=== PATIENT | female | born 2000 | race Two or more races ===

== ENCOUNTER 2022-08-12 01:13 | Emergency (ER) | payer BC, OTHER ==
[~2022-08-12] VITALS: Ht 170.2 cm; Wt 74.5 kg
[2022-08-12 05:18] VITALS: BP 134/83
== END 2022-08-12 05:48 | disposition home or self-care (01) ==
LOC: ER 01:13
DX: L02.412 Cutaneous abscess of left axilla (principal)
CPT/HCPCS: 10060

== ENCOUNTER → 2023-02-09 | Outpatient (CLI) | payer BC | END | disposition home or self-care (01) | LOC: LAB 06:11 | PROVIDERS: ATTEND Student in an Organized Health Care Education/Training Program | DX: N94.10 Unspecified dyspareunia (principal) | CPT/HCPCS: 87070 ==

== ENCOUNTER → 2023-03-09 | Outpatient (CLI) | payer BC ==
[2023-03-09 16:30] LABS: Basophils # (auto) 0 10 ^3/uL (0-0.2); Basophils % (auto) 0.5 % (0.0-2.0); Eosinophils # (auto) 0.1 10 ^3/uL (0-0.8); Eosinophils % (auto) 0.9 % (0.0-7.0); Hematocrit 47.4 % (36.0-46.0); Hemoglobin 16.5 g/dL (12.2-16.2); Lymphocytes # (auto) 1.8 10 ^3/uL (0.4-5.4); Lymphocytes % (auto) 24.4 % (10.0-50.0); Mean Corpuscular Hemoglobin 32.1 pg (28.0-32.0); Mean Corpuscular Hgb Conc. 34.8 g/dL (32.0-36.0); Mean Corpuscular Volume 92.2 fL (80.0-100.0); Monocytes # (auto) 0.6 10 ^3/uL (0-1.3); Monocytes % (auto) 8.3 % (0.0-12.0); Neutrophils % (auto) 65.9 % (37.0-80.0); Nucleated Red Blood Cells % 0.1 %; Red Blood Cells 5.14 10^6/uL (4.0-5.20); Red Cell Distribution Width 12.8 % (11.8-14.3); White Blood Cell 7.6 10^3/uL (4.4-10.8)
[2023-03-09 17:11] LABS: BUN/Creatinine Ratio 21.2 (10.0-20.0); Calcium 9.8 mg/dL (8.5-10.1)
[2023-03-10 07:06] LABS: RPR Non Reactive (Non Reactive)
== END | disposition home or self-care (01) ==
LOC: LAB 16:06
PROVIDERS: ATTEND Student in an Organized Health Care Education/Training Program
DX: Z00.00 Encounter for general adult medical examination without abnormal findings (principal); N94.10 Unspecified dyspareunia; Z72.53 High risk bisexual behavior
CPT/HCPCS: 36415; 80048; 85025; 86592; 86703; 86704; 86706; 86708; 86803; 87340